=== PATIENT | male | born 1975 | race Two or more races ===

== ENCOUNTER 2017-12-16 12:28 | Observation (INO) ==
[2017-12-16] MEDS ORDERED: HYDROmorphone 2 MG/1 ML VIAL IV ONE (13:00)
[2017-12-16] MEDS ORDERED: ONDANSETRON 4 MG/2 ML VIAL IV STA (13:00)
[2017-12-16] MEDS ORDERED: DEXAMETHASONE 4 MG/1 ML VIAL IV STA (13:01)
[2017-12-16] MEDS ORDERED: SODIUM CHLORIDE 0.9% 500 ML IV STA (13:01)
[2017-12-16 14:40] LABS: Basophils # 0.1 10*3/uL (0.0-0.2); Basophils % 0.5 % (0.0-0.8); Eosinophils # 0.2 10*3/uL (0.0-0.87); Eosinophils % 1.8 % (0.00-10.9); Hematocrit 44.4 VOL% (42.0-52.0); Hemoglobin 15.3 GM/DL (14.0-18.0); Immature Granulocytes % 0.6 %; Immature Granulocytes Absolute 0.06 #; Lymphocytes # 3.3 10*3/uL (1.4-4.0); Lymphocytes % 34.5 % (21.2-54.2); Mean Corpuscular HGB Conc 34.5 GM/DL (32-36); Mean Corpuscular Hemoglobin 31 PG (27-34); Mean Corpuscular Volume 88.8 FL (87-102); Monocytes # 0.8 10*3/uL (0.11-0.8); Monocytes % 8.1 % (1.7-12.7); Neutrophils # 5.3 10*3/uL (1.4-7.4); Neutrophils % 54.5 % (38.7-73.9); Platelet Count 272 T/CUMM (130-400); Red Cell Distribution Width 12.6 % (9.3-17.3); White Blood Count 9.7 T/CUMM (4-12)
[2017-12-16 14:59] LABS: Albumin 3.8 G/DL (3.4-5.0); Calcium 9.1 MG/DL (8.5-10.1); Lactic Acid 0.8 MMOL/L (0.4-2.0); Osmolality,Calculated 277.8 MOS/KG (273-304); Potassium 4.1 MMOL/L (3.5-5.1); Total Protein 8.2 G/DL (6.4-8.3)
[2017-12-16] MEDS ORDERED: HYDROmorphone 2 MG/1 ML VIAL IV STA (15:46)
[2017-12-16] MEDS ORDERED: ONDANSETRON 4 MG/2 ML VIAL IV PRN (16:22)
[2017-12-16] MEDS ORDERED: hydrALAZINE 20 MG/1 ML VIAL IV PRN (16:27)
[2017-12-16] MEDS ORDERED: DEXTROSE 50% 25 GM/50 ML VIAL IV PRN (16:28)
[2017-12-16] MEDS ORDERED: GLUCAGON 1 MG VIAL IM PRN (16:28)
[2017-12-16] MEDS: SODIUM CHLORIDE 0.9% 1,000 ML IV SCH (17:27)
[2017-12-16] MEDS: INSULIN REGULAR 100 UNIT/ML SUBCUT SCH ×2 (18:14→20:23)
[2017-12-16] MEDS: HYDROmorphone 2 MG/1 ML VIAL IV PRN ×2 (18:28→22:32)
[2017-12-16] MEDS: INSULIN GLARGINE 100 UNIT/ML SUBCUT SCH (20:32)
[2017-12-17] MEDS: SODIUM CHLORIDE 0.9% 1,000 ML IV SCH ×3 (02:23→19:16)
[2017-12-17 04:04] LABS: Basophils % 0.2 % (0.0-0.8); Hematocrit 42.9 VOL% (42.0-52.0); Hemoglobin 14.6 GM/DL (14.0-18.0); Immature Granulocytes % 0.6 %; Immature Granulocytes Absolute 0.05 #; Lymphocytes # 1.6 10*3/uL (1.4-4.0); Lymphocytes % 19.6 % (21.2-54.2); Mean Corpuscular Hemoglobin 30 PG (27-34); Mean Corpuscular Volume 87.7 FL (87-102); Mean Platelet Volume 11.5 FL (9.6-12.0); Monocytes # 0.5 10*3/uL (0.11-0.8); Monocytes % 5.9 % (1.7-12.7); Neutrophils % 73.7 % (38.7-73.9); Platelet Count 262 T/CUMM (130-400); Red Blood Count 4.89 MC/CUMM (3.8-5.5); Red Cell Distribution Width 12.5 % (9.3-17.3); White Blood Count 8.1 T/CUMM (4-12)
[2017-12-17 04:21] LABS: Calcium 8.5 MG/DL (8.5-10.1); Osmolality,Calculated 281.8 MOS/KG (273-304); Potassium 3.9 MMOL/L (3.5-5.1)
[2017-12-17] MEDS: HYDROmorphone 2 MG/1 ML VIAL IV PRN ×5 (04:23→22:02)
[2017-12-17] MEDS: PANTOPRAZOLE 40 MG VIAL IV SCH (08:30)
[2017-12-17] MEDS: INSULIN REGULAR 100 UNIT/ML SUBCUT SCH ×4 (08:35→22:03)
[2017-12-17] MEDS ORDERED: DEXAMETHASONE INJ 10 MG in SODIUM CHLORIDE 0.9% 50 ML IV SCH (10:00)
[2017-12-17] MEDS: metFORMIN 500 MG TABLET PO SCH ×2 (11:31→22:02)
[2017-12-17] MEDS: glipiZIDE 5 MG TABLET PO SCH (17:06)
[2017-12-17] MEDS ORDERED: rOPINIRole 1 MG TABLET PO SCH (21:00)
[2017-12-17] MEDS: INSULIN GLARGINE 100 UNIT/ML SUBCUT SCH (22:02)
[2017-12-18] MEDS: glipiZIDE 5 MG TABLET PO SCH (00:35)
[2017-12-18] MEDS: HYDROmorphone 2 MG/1 ML VIAL IV PRN ×2 (02:36→06:40)
[2017-12-18] MEDS: SODIUM CHLORIDE 0.9% 1,000 ML IV SCH (02:38)
[2017-12-18] MEDS: INSULIN REGULAR 100 UNIT/ML SUBCUT SCH (07:35)
[2017-12-18 07:42] VITALS: BP 127/83
[2017-12-18] MEDS ORDERED: LISINOPRIL/HCTZ 20-12.5 MG TABLET PO SCH (09:00)
[2017-12-18] MEDS ORDERED: MULTIVITAMIN (CENTRUM) TABLET PO SCH (09:00)
[2017-12-18] MEDS: metFORMIN 500 MG TABLET PO SCH (09:59)
[2017-12-18] MEDS: PANTOPRAZOLE 40 MG VIAL IV SCH (09:59)
== END 2017-12-18 10:57 | disposition home or self-care (01) ==
LOC: N.ED 12:28 → N.EDINP 12:28 → N.3E 16:46